=== PATIENT | male | born 2000 | race Caucasian/White ===

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

== ENCOUNTER 2019-03-27 07:45 | Emergency (ER) | payer OTHER ==
[~2019-03-27] VITALS: Ht 172.7 cm; Wt 74.8 kg
[2019-03-27 07:54] VITALS: Ht 172.7 cm; Wt 74.8 kg
[2019-03-27 09:42] VITALS: BP 133/61
== END 2019-03-27 09:42 | disposition home or self-care (01) ==
LOC: ED 07:45
DX: R21 Rash and other nonspecific skin eruption (principal); L29.9 Pruritus, unspecified